=== PATIENT | male | born 1960 | race Caucasian/White ===

== ENCOUNTER 2017-07-31 09:19 | Emergency (ER) | payer SELFPAY, OTHER | END 2017-07-31 13:10 | disposition left against medical advice (07) | LOC: E/R 09:19 | DX: Z53.21 Procedure and treatment not carried out due to patient leaving prior to being seen by health care provider (principal) ==

== ENCOUNTER 2017-08-09 07:03 | Inpatient (IN) | payer OTHER ==
[2017-08-09] MEDS ORDERED: NACL 0.9% 3 ML SYG IV (12:00)
[2017-08-09] MEDS ORDERED: NITROGLYCERIN (SL) 0.4 MG TAB SL (12:00)
[2017-08-09] MEDS ORDERED: ACETAMINOPHEN 325 MG TAB PO (12:00)
[2017-08-09 12:34] LABS: CREATINE KINASE 53 IU/L (23-200)
[2017-08-09 12:47] LABS: CK INDEX 3.1
[2017-08-09 12:49] LABS: CK-MB 1.66 ng/ml (0.0-2.4); TROPONIN-I < 0.012 ng/ml (0.00-0.12)
[2017-08-09 13:05] LABS: HEMOGLOBIN A1C 9.6 % (0-5.9)
[2017-08-09 13:13] LABS: LDL CHOLESTEROL,CALCULATED 112 mg/dl
[2017-08-09 13:15] LABS: CHOLESTEROL 167 mg/dl (100-200); HDL CHOLESTEROL 33 mg/dl (28-71); MAGNESIUM 1.7 mg/dl (1.7-2.5); TRIGLYCERIDES 111 mg/dl (0-149)
[2017-08-09 13:15] LABS: PHOSPHORUS 3.6 mg/dl (2.5-4.9)
[2017-08-09] MEDS: ASPIRIN 81 MG TAB PO (13:19)
[2017-08-09] MEDS: DOCUSATE SODIUM 100 MG CAP PO ×2 (13:19→22:46)
[2017-08-09] MEDS: FAMOTIDINE 20 MG TAB PO ×2 (13:19→22:45)
[2017-08-09] MEDS: LISINOPRIL 20 MG TAB PO (13:20)
[2017-08-09] MEDS: HYDROCODONE/APAP (5/325) TAB PO ×2 (13:22→22:45)
[2017-08-09] MEDS ORDERED: GLUCOSE GEL 15 GRAM TUBE PO ×2 (13:30)
[2017-08-09] MEDS ORDERED: GLUCOSE GEL 15 GRAM TUBE BUCCAL (13:30)
[2017-08-09] MEDS ORDERED: DEXTROSE 50% 50 ML SYRINGE IV ×2 (13:30)
[2017-08-09] MEDS ORDERED: GLUCAGON 1 MG INJ IM (13:30)
[2017-08-09 14:37] LABS: ADD UMIC NO; UR ASCORBIC ACID NEGATIVE (NEGATIVE); UR BILIRUBIN (Dip) NEGATIVE (NEGATIVE); UR BLOOD (Dip) NEGATIVE (NEGATIVE); UR CLARITY CLEAR (CLEAR); UR COLOR YELLOW (YELLOW); UR GLUCOSE (Dip) 3+ mg/dL (NEGATIVE); UR KETONES (Dip) NEGATIVE (NEGATIVE); UR LEUKOCYTE ESTERASE (Dip) NEGATIVE Leu/ul (NEGATIVE); UR NITRITE (Dip) NEGATIVE (NEGATIVE); UR SPECIFIC GRAVITY (Dip) 1.017 (1.003-1.030); UR TOTAL PROTEIN (Dip) NEGATIVE (NEGATIVE); UR UROBILINOGEN (Dip) NEGATIVE (NEGATIVE)
[2017-08-09 14:56] LABS: CANNABINOIDS Negative (NEGATIVE); OPIATES Negative (NEGATIVE)
[2017-08-09 15:06] LABS: BARBITURATES Negative (NEGATIVE); BENZODIAZEPINES Negative (NEGATIVE); COCAINE Negative (NEGATIVE)
[2017-08-09 15:07] LABS: AMPHETAMINE/METHAMPHETAMINE POSITIVE (NEGATIVE)
[2017-08-09] MEDS: AMLODIPINE 10 MG TAB PO (15:25)
[2017-08-09] MEDS: NICOTINE (21 MG/24 HR) PATCH TRANSDERM (15:26)
[2017-08-09] MEDS: ENOXAPARIN 40 MG/0.4 ML SYG SC (15:29)
[2017-08-09] MEDS: REPAGLINIDE 1 MG TAB PO (16:50)
[2017-08-09] MEDS: morphine 2 MG INJ IV (16:51)
[2017-08-09] MEDS ORDERED: VANCOMYCIN IV PER PHARMACY XX (17:30)
[2017-08-09] MEDS: LEVOFLOXACIN 500 MG TAB GTB (17:39)
[2017-08-09] MEDS: INSULIN ASPART [NOVOLOG] 3 ML PEN SC ×2 (17:44→23:03)
[2017-08-09 18:23] LABS: CREATINE KINASE 50 IU/L (23-200)
[2017-08-09 18:24] LABS: BLOOD UREA NITROGEN 17 mg/dl (7-20)
[2017-08-09 18:24] LABS: CREATININE 0.81 mg/dl (0.61-1.24)
[2017-08-09 18:37] LABS: CK INDEX 3.2
[2017-08-09 18:38] LABS: CK-MB 1.58 ng/ml (0.0-2.4); TROPONIN-I < 0.012 ng/ml (0.00-0.12)
[2017-08-09] MEDS: ACCU-CHEK XX (19:35)
[2017-08-09] MEDS: TAMSULOSIN (SR) 0.4 MG CAP PO (22:45)
[2017-08-09] MEDS: VANCOMYCIN 2 GM in DEXTROSE 5% 500 ML IVPB (22:46)
[2017-08-09] MEDS: INSULIN GLARGINE [LANtus] 3 ML PEN SC (23:02)
[2017-08-10] MEDS: ACCU-CHEK XX ×4 (02:49→19:35)
[2017-08-10] MEDS: LEVOFLOXACIN 500 MG TAB GTB (06:10)
[2017-08-10 07:15] LABS: ADD MAN DIFF? NO
[2017-08-10 07:19] LABS: WHITE BLOOD COUNT 8.3 10^3/ul (4.8-10.8)
[2017-08-10 07:19] LABS: BASOPHILS % 0.5 % (0.0-2.0); EOSINOPHILS # 0.1 10^3/ul (0.0-0.5); EOSINOPHILS % 1.7 % (0.0-7.0); HEMATOCRIT 42.4 % (42.0-52.0); HEMOGLOBIN 14.9 g/dl (14.0-18.0); LYMPHOCYTES # 2.6 10^3/ul (0.8-2.9); LYMPHOCYTES % 30.7 % (15.0-51.0); MEAN CORPUSCULAR HEMOGLOBIN 29.9 pg (29.0-33.0); MEAN CORPUSCULAR HGB CONC 35.1 g/dl (32.0-37.0); MEAN PLATELET VOLUME 10.3 fl (7.4-10.4); MONOCYTE # 0.6 10^3/ul (0.3-0.9); MONOCYTES % 6.8 % (0.0-11.0); NEUTROPHILS % 59.9 % (39.0-77.0); PLATELET COUNT 286 10^3/UL (140-415); RED BLOOD COUNT 4.99 10^6/ul (4.70-6.10); RED CELL DISTRIBUTION WIDTH 14.3 % (11.5-14.5)
[2017-08-10 07:40] LABS: ALANINE AMINOTRANSFERASE 59 IU/L (13-69); ALBUMIN 3.8 g/dl (3.3-4.9); ALKALINE PHOSPHATASE 84 IU/L (42-121); ANION GAP 17 (8-16); ASPARTATE AMINO TRANSFERASE 37 IU/L (15-46); BILIRUBIN,INDIRECT 0.8 mg/dl (0-1.1); BILIRUBIN,TOTAL 0.8 mg/dl (0.2-1.3); BLOOD UREA NITROGEN 13 mg/dl (7-20); CALCIUM 8.7 mg/dl (8.4-10.2); CARBON DIOXIDE 26 mmol/L (21-31); CHLORIDE 102 mmol/L (97-110); CREATININE 0.87 mg/dl (0.61-1.24); GLUCOSE 218 mg/dl (70-220); POTASSIUM 3.7 mmol/L (3.5-5.1); SODIUM 141 mmol/L (135-144)
[2017-08-10 07:49] LABS: MAGNESIUM 1.8 mg/dl (1.7-2.5)
[2017-08-10] MEDS: NICOTINE (21 MG/24 HR) PATCH TRANSDERM (08:17)
[2017-08-10] MEDS: REPAGLINIDE 1 MG TAB PO ×3 (08:17→17:50)
[2017-08-10] MEDS: DOCUSATE SODIUM 100 MG CAP PO ×2 (08:18→21:00)
[2017-08-10] MEDS: FAMOTIDINE 20 MG TAB PO ×2 (08:18→21:00)
[2017-08-10] MEDS: ASPIRIN 81 MG TAB PO (08:19)
[2017-08-10] MEDS: LISINOPRIL 20 MG TAB PO (08:19)
[2017-08-10] MEDS: ENOXAPARIN 40 MG/0.4 ML SYG SC (08:20)
[2017-08-10] MEDS: INSULIN ASPART [NOVOLOG] 3 ML PEN SC ×6 (08:21→21:00)
[2017-08-10] MEDS: AMLODIPINE 10 MG TAB PO (08:24)
[2017-08-10] MEDS: VANCOMYCIN 1.5 GM in SOD CHLORIDE 0.9% 250 ML IVPB ×2 (09:32→22:52)
[2017-08-10 11:52] LABS: TROPONIN-I < 0.012 ng/ml (0.00-0.12)
[2017-08-10] MEDS: HYDROCODONE/APAP (5/325) TAB PO ×2 (15:36→22:53)
[2017-08-10] MEDS: INFLUENZA VIRUS VACCINE 0.5 ML SYG IM* (15:39)
[2017-08-10] MEDS: TAMSULOSIN (SR) 0.4 MG CAP PO (21:00)
[2017-08-10] MEDS: LORAZEPAM 0.5 MG TAB PO (22:53)
[2017-08-10] MEDS: INSULIN GLARGINE [LANtus] 3 ML PEN SC (23:00)
[2017-08-11] MEDS: ACCU-CHEK XX ×2 (02:00→19:35)
[2017-08-11] MEDS: LEVOFLOXACIN 500 MG TAB GTB (06:01)
[2017-08-11 06:34] LABS: ADD MAN DIFF? NO
[2017-08-11 06:38] LABS: BASOPHIL # 0.1 10^3/ul (0.0-0.1); BASOPHILS % 0.8 % (0.0-2.0); EOSINOPHILS # 0.2 10^3/ul (0.0-0.5); EOSINOPHILS % 2.1 % (0.0-7.0); HEMATOCRIT 42.5 % (42.0-52.0); HEMOGLOBIN 15.2 g/dl (14.0-18.0); LYMPHOCYTES # 2.6 10^3/ul (0.8-2.9); LYMPHOCYTES % 33.6 % (15.0-51.0); MEAN CORPUSCULAR HEMOGLOBIN 30.2 pg (29.0-33.0); MEAN CORPUSCULAR HGB CONC 35.8 g/dl (32.0-37.0); MEAN CORPUSCULAR VOLUME 84.3 fl (82.0-101.0); MEAN PLATELET VOLUME 10.5 fl (7.4-10.4); MONOCYTE # 0.6 10^3/ul (0.3-0.9); MONOCYTES % 8.1 % (0.0-11.0); NEUTROPHIL # 4.3 10^3/ul (1.6-7.5); NEUTROPHILS % 54.8 % (39.0-77.0); PLATELET COUNT 283 10^3/UL (140-415); RED BLOOD COUNT 5.04 10^6/ul (4.70-6.10); RED CELL DISTRIBUTION WIDTH 14.6 % (11.5-14.5)
[2017-08-11 06:38] LABS: WHITE BLOOD COUNT 7.8 10^3/ul (4.8-10.8)
[2017-08-11 07:00] LABS: ALANINE AMINOTRANSFERASE 55 IU/L (13-69); ALKALINE PHOSPHATASE 76 IU/L (42-121); ANION GAP 17 (8-16); ASPARTATE AMINO TRANSFERASE 37 IU/L (15-46); BILIRUBIN,INDIRECT 0.5 mg/dl (0-1.1); BILIRUBIN,TOTAL 0.5 mg/dl (0.2-1.3); BLOOD UREA NITROGEN 16 mg/dl (7-20); CALCIUM 9.1 mg/dl (8.4-10.2); CARBON DIOXIDE 27 mmol/L (21-31); CHLORIDE 105 mmol/L (97-110); GLUCOSE 162 mg/dl (70-220); POTASSIUM 3.7 mmol/L (3.5-5.1); SODIUM 145 mmol/L (135-144); TOTAL PROTEIN 7.3 g/dl (6.1-8.1)
[2017-08-11] MEDS: INSULIN ASPART [NOVOLOG] 3 ML PEN SC ×7 (07:35→21:00)
[2017-08-11] MEDS: DOCUSATE SODIUM 100 MG CAP PO ×2 (08:18→21:12)
[2017-08-11] MEDS: NICOTINE (21 MG/24 HR) PATCH TRANSDERM (08:18)
[2017-08-11] MEDS: LISINOPRIL 20 MG TAB PO (08:18)
[2017-08-11] MEDS: ASPIRIN 81 MG TAB PO (08:18)
[2017-08-11] MEDS: FAMOTIDINE 20 MG TAB PO ×2 (08:18→21:12)
[2017-08-11] MEDS: REPAGLINIDE 1 MG TAB PO ×3 (08:19→17:51)
[2017-08-11] MEDS: HYDROCODONE/APAP (5/325) TAB PO (08:19)
[2017-08-11] MEDS: ENOXAPARIN 40 MG/0.4 ML SYG SC (08:22)
[2017-08-11 09:40] LABS: VANCOMYCIN,TROUGH 9.4 ug/ml (10.0-20.0)
[2017-08-11] MEDS: VANCOMYCIN 1.5 GM in SOD CHLORIDE 0.9% 250 ML IVPB (10:03)
[2017-08-11] MEDS: AMLODIPINE 10 MG TAB PO (10:03)
[2017-08-11] MEDS: INSULIN GLARGINE [LANtus] 3 ML PEN SC (21:19)
[2017-08-11] MEDS: TAMSULOSIN (SR) 0.4 MG CAP PO (21:21)
[2017-08-11] MEDS: VANCOMYCIN 1.75 GM in D5W 500 ML IVPB (22:02)
[2017-08-12] MEDS: HYDROCODONE/APAP (5/325) TAB PO ×3 (01:07→20:41)
[2017-08-12] MEDS: ZOLPIDEM 5 MG TAB PO ×2 (01:07→21:49)
[2017-08-12] MEDS: ACCU-CHEK XX ×4 (01:31→19:35)
[2017-08-12 05:23] LABS: ADD MAN DIFF? NO
[2017-08-12 05:31] LABS: WHITE BLOOD COUNT 8.7 10^3/ul (4.8-10.8)
[2017-08-12 05:31] LABS: BASOPHIL # 0.1 10^3/ul (0.0-0.1); BASOPHILS % 0.6 % (0.0-2.0); EOSINOPHILS # 0.2 10^3/ul (0.0-0.5); EOSINOPHILS % 1.8 % (0.0-7.0); HEMOGLOBIN 15.3 g/dl (14.0-18.0); LYMPHOCYTES # 2.5 10^3/ul (0.8-2.9); LYMPHOCYTES % 28.8 % (15.0-51.0); MEAN CORPUSCULAR HEMOGLOBIN 29.9 pg (29.0-33.0); MEAN CORPUSCULAR HGB CONC 35.6 g/dl (32.0-37.0); MONOCYTE # 0.6 10^3/ul (0.3-0.9); MONOCYTES % 7.3 % (0.0-11.0); NEUTROPHIL # 5.3 10^3/ul (1.6-7.5); NEUTROPHILS % 61.2 % (39.0-77.0); PLATELET COUNT 289 10^3/UL (140-415); RED BLOOD COUNT 5.12 10^6/ul (4.70-6.10); RED CELL DISTRIBUTION WIDTH 14.2 % (11.5-14.5)
[2017-08-12 05:54] LABS: ANION GAP 15 (8-16); BLOOD UREA NITROGEN 16 mg/dl (7-20); CALCIUM 9.1 mg/dl (8.4-10.2); CARBON DIOXIDE 27 mmol/L (21-31); CHLORIDE 106 mmol/L (97-110); CREATININE 0.87 mg/dl (0.61-1.24); GLUCOSE 214 mg/dl (70-220); POTASSIUM 3.8 mmol/L (3.5-5.1); SODIUM 144 mmol/L (135-144)
[2017-08-12] MEDS: LEVOFLOXACIN 500 MG TAB GTB (06:08)
[2017-08-12] MEDS: INSULIN ASPART [NOVOLOG] 3 ML PEN SC ×7 (07:36→20:37)
[2017-08-12] MEDS: DOCUSATE SODIUM 100 MG CAP PO ×2 (08:12→20:41)
[2017-08-12] MEDS: FAMOTIDINE 20 MG TAB PO ×2 (08:13→20:41)
[2017-08-12] MEDS: REPAGLINIDE 1 MG TAB PO ×3 (08:13→17:15)
[2017-08-12] MEDS: ASPIRIN 81 MG TAB PO (08:13)
[2017-08-12] MEDS: LISINOPRIL 20 MG TAB PO (08:13)
[2017-08-12] MEDS: NICOTINE (21 MG/24 HR) PATCH TRANSDERM (08:14)
[2017-08-12] MEDS: ENOXAPARIN 40 MG/0.4 ML SYG SC (08:16)
[2017-08-12] MEDS: AMLODIPINE 10 MG TAB PO (09:25)
[2017-08-12] MEDS: VANCOMYCIN 1.75 GM in D5W 500 ML IVPB ×2 (10:35→21:42)
[2017-08-12] MEDS ORDERED: LIDOCAINE 1%/EPI 30 ML INJ INJ (18:32)
[2017-08-12] MEDS ORDERED: SILVER NITRATE SWAB TOP (19:00)
[2017-08-12] MEDS: INSULIN GLARGINE [LANtus] 3 ML PEN SC (20:37)
[2017-08-12] MEDS: TAMSULOSIN (SR) 0.4 MG CAP PO (20:41)
[2017-08-13] MEDS: ACCU-CHEK XX ×4 (02:00→20:05)
[2017-08-13] MEDS: HYDROCODONE/APAP (5/325) TAB PO ×3 (04:49→21:21)
[2017-08-13 05:48] LABS: ADD MAN DIFF? NO
[2017-08-13 05:56] LABS: WHITE BLOOD COUNT 7.6 10^3/ul (4.8-10.8)
[2017-08-13 05:56] LABS: BASOPHIL # 0.1 10^3/ul (0.0-0.1); BASOPHILS % 0.8 % (0.0-2.0); EOSINOPHILS # 0.2 10^3/ul (0.0-0.5); EOSINOPHILS % 2.2 % (0.0-7.0); HEMATOCRIT 42.7 % (42.0-52.0); HEMOGLOBIN 15.1 g/dl (14.0-18.0); LYMPHOCYTES # 2.6 10^3/ul (0.8-2.9); LYMPHOCYTES % 33.5 % (15.0-51.0); MEAN CORPUSCULAR HEMOGLOBIN 29.6 pg (29.0-33.0); MEAN CORPUSCULAR HGB CONC 35.4 g/dl (32.0-37.0); MEAN CORPUSCULAR VOLUME 83.7 fl (82.0-101.0); MEAN PLATELET VOLUME 9.9 fl (7.4-10.4); MONOCYTE # 0.6 10^3/ul (0.3-0.9); MONOCYTES % 7.2 % (0.0-11.0); NEUTROPHIL # 4.3 10^3/ul (1.6-7.5); NEUTROPHILS % 55.6 % (39.0-77.0); PLATELET COUNT 282 10^3/UL (140-415); RED CELL DISTRIBUTION WIDTH 14.1 % (11.5-14.5)
[2017-08-13] MEDS: LEVOFLOXACIN 500 MG TAB GTB (06:16)
[2017-08-13 06:25] LABS: ANION GAP 17 (8-16); BLOOD UREA NITROGEN 15 mg/dl (7-20); CALCIUM 9.2 mg/dl (8.4-10.2); CARBON DIOXIDE 27 mmol/L (21-31); CHLORIDE 104 mmol/L (97-110); CREATININE 0.87 mg/dl (0.61-1.24); GLUCOSE 156 mg/dl (70-220); POTASSIUM 3.7 mmol/L (3.5-5.1); SODIUM 144 mmol/L (135-144)
[2017-08-13 06:30] LABS: MAGNESIUM 1.8 mg/dl (1.7-2.5)
[2017-08-13 06:30] LABS: PHOSPHORUS 3.4 mg/dl (2.5-4.9)
[2017-08-13] MEDS: INSULIN ASPART [NOVOLOG] 3 ML PEN SC ×7 (08:15→21:11)
[2017-08-13] MEDS: REPAGLINIDE 2 MG TAB PO ×3 (08:15→17:33)
[2017-08-13] MEDS: LISINOPRIL 20 MG TAB PO (08:41)
[2017-08-13] MEDS: FAMOTIDINE 20 MG TAB PO ×2 (08:41→21:09)
[2017-08-13] MEDS: ASPIRIN 81 MG TAB PO (08:41)
[2017-08-13] MEDS: AMLODIPINE 10 MG TAB PO (08:41)
[2017-08-13] MEDS: DOCUSATE SODIUM 100 MG CAP PO ×2 (08:41→21:09)
[2017-08-13] MEDS: NICOTINE (21 MG/24 HR) PATCH TRANSDERM (08:42)
[2017-08-13] MEDS: ENOXAPARIN 40 MG/0.4 ML SYG SC (08:43)
[2017-08-13] MEDS: VANCOMYCIN 1.75 GM in D5W 500 ML IVPB ×2 (10:17→23:09)
[2017-08-13] MEDS: ONDANSETRON 4 MG INJ IV (14:48)
[2017-08-13] MEDS: TAMSULOSIN (SR) 0.4 MG CAP PO (21:09)
[2017-08-13] MEDS: INSULIN GLARGINE [LANtus] 3 ML PEN SC (21:10)
[2017-08-13] MEDS: ZOLPIDEM 5 MG TAB PO (22:24)
[2017-08-13 22:45] LABS: VANCOMYCIN,TROUGH 15.9 ug/ml (10.0-20.0)
[2017-08-14] MEDS: ACCU-CHEK XX ×4 (02:00→20:05)
[2017-08-14] MEDS: LEVOFLOXACIN 500 MG TAB GTB (05:46)
[2017-08-14] MEDS: HYDROCODONE/APAP (5/325) TAB PO ×3 (05:47→17:49)
[2017-08-14 05:53] LABS: ADD MAN DIFF? NO
[2017-08-14 05:57] LABS: WHITE BLOOD COUNT 9.1 10^3/ul (4.8-10.8)
[2017-08-14 05:57] LABS: BASOPHIL # 0.1 10^3/ul (0.0-0.1); BASOPHILS % 0.8 % (0.0-2.0); EOSINOPHILS # 0.2 10^3/ul (0.0-0.5); EOSINOPHILS % 2.3 % (0.0-7.0); LYMPHOCYTES # 2.6 10^3/ul (0.8-2.9); LYMPHOCYTES % 27.9 % (15.0-51.0); MEAN CORPUSCULAR HEMOGLOBIN 29.7 pg (29.0-33.0); MEAN CORPUSCULAR HGB CONC 34.8 g/dl (32.0-37.0); MEAN CORPUSCULAR VOLUME 85.5 fl (82.0-101.0); MEAN PLATELET VOLUME 10.2 fl (7.4-10.4); MONOCYTE # 0.6 10^3/ul (0.3-0.9); MONOCYTES % 6.8 % (0.0-11.0); NEUTROPHIL # 5.6 10^3/ul (1.6-7.5); NEUTROPHILS % 61.7 % (39.0-77.0); PLATELET COUNT 287 10^3/UL (140-415); RED BLOOD COUNT 5.38 10^6/ul (4.70-6.10); RED CELL DISTRIBUTION WIDTH 14.3 % (11.5-14.5)
[2017-08-14 06:20] LABS: ANION GAP 14 (8-16); BLOOD UREA NITROGEN 16 mg/dl (7-20); CALCIUM 9.3 mg/dl (8.4-10.2); CARBON DIOXIDE 30 mmol/L (21-31); CHLORIDE 106 mmol/L (97-110); CREATININE 1.04 mg/dl (0.61-1.24); GLUCOSE 113 mg/dl (70-220); POTASSIUM 4.4 mmol/L (3.5-5.1); SODIUM 146 mmol/L (135-144)
[2017-08-14] MEDS: INSULIN ASPART [NOVOLOG] 3 ML PEN SC ×7 (08:25→21:14)
[2017-08-14] MEDS: NICOTINE (21 MG/24 HR) PATCH TRANSDERM (08:27)
[2017-08-14] MEDS: ENOXAPARIN 40 MG/0.4 ML SYG SC (08:27)
[2017-08-14] MEDS: LISINOPRIL 20 MG TAB PO (08:28)
[2017-08-14] MEDS: FAMOTIDINE 20 MG TAB PO ×2 (08:28→21:07)
[2017-08-14] MEDS: AMLODIPINE 10 MG TAB PO (08:28)
[2017-08-14] MEDS: ASPIRIN 81 MG TAB PO (08:28)
[2017-08-14] MEDS: REPAGLINIDE 2 MG TAB PO ×3 (08:28→17:12)
[2017-08-14] MEDS: DOCUSATE SODIUM 100 MG CAP PO ×2 (08:30→21:07)
[2017-08-14] MEDS: VANCOMYCIN 1.75 GM in D5W 500 ML IVPB (10:09)
[2017-08-14] MEDS: GUAIFENESIN/DM 5ML CUP PO ×2 (13:18→21:24)
[2017-08-14] MEDS ORDERED: LIDOCAINE 1% (MDV) 20 ML INJ (17:41)
[2017-08-14] MEDS: TAMSULOSIN (SR) 0.4 MG CAP PO (21:07)
[2017-08-14] MEDS: INSULIN GLARGINE [LANtus] 3 ML PEN SC (21:11)
[2017-08-14] MEDS: VANCOMYCIN 1.5 GM in SOD CHLORIDE 0.9% 250 ML IVPB (21:12)
[2017-08-15] MEDS: HYDROCODONE/APAP (5/325) TAB PO (01:18)
[2017-08-15] MEDS: ACCU-CHEK XX ×4 (02:00→20:05)
[2017-08-15] MEDS ORDERED: morphine 2 MG INJ (02:48)
[2017-08-15] MEDS: morphine 2 MG INJ IV ×3 (02:59→20:10)
[2017-08-15] MEDS: LEVOFLOXACIN 500 MG TAB GTB (06:12)
[2017-08-15] MEDS: HYDROCODONE/APAP (10/325) TAB PO ×2 (06:12→12:03)
[2017-08-15 06:49] LABS: ADD MAN DIFF? NO
[2017-08-15 06:54] LABS: BASOPHIL # 0.1 10^3/ul (0.0-0.1); BASOPHILS % 0.8 % (0.0-2.0); EOSINOPHILS # 0.2 10^3/ul (0.0-0.5); EOSINOPHILS % 2.1 % (0.0-7.0); HEMATOCRIT 43.1 % (42.0-52.0); HEMOGLOBIN 15.1 g/dl (14.0-18.0); LYMPHOCYTES # 2.6 10^3/ul (0.8-2.9); LYMPHOCYTES % 28.7 % (15.0-51.0); MEAN CORPUSCULAR VOLUME 85.5 fl (82.0-101.0); MEAN PLATELET VOLUME 10.3 fl (7.4-10.4); MONOCYTE # 0.7 10^3/ul (0.3-0.9); MONOCYTES % 7.3 % (0.0-11.0); NEUTROPHIL # 5.5 10^3/ul (1.6-7.5); NEUTROPHILS % 60.8 % (39.0-77.0); PLATELET COUNT 280 10^3/UL (140-415); RED BLOOD COUNT 5.04 10^6/ul (4.70-6.10); RED CELL DISTRIBUTION WIDTH 14.3 % (11.5-14.5)
[2017-08-15 07:11] LABS: PHOSPHORUS 3.7 mg/dl (2.5-4.9)
[2017-08-15 07:15] LABS: ANION GAP 16 (8-16); BLOOD UREA NITROGEN 18 mg/dl (7-20); CARBON DIOXIDE 26 mmol/L (21-31); CHLORIDE 107 mmol/L (97-110); CREATININE 0.93 mg/dl (0.61-1.24); GLUCOSE 95 mg/dl (70-220); POTASSIUM 3.9 mmol/L (3.5-5.1); SODIUM 145 mmol/L (135-144)
[2017-08-15] MEDS: INSULIN ASPART [NOVOLOG] 3 ML PEN SC ×7 (08:00→21:00)
[2017-08-15] MEDS: ENOXAPARIN 40 MG/0.4 ML SYG SC (08:41)
[2017-08-15] MEDS: ASPIRIN 81 MG TAB PO (08:43)
[2017-08-15] MEDS: FAMOTIDINE 20 MG TAB PO ×2 (08:43→21:50)
[2017-08-15] MEDS: REPAGLINIDE 2 MG TAB PO ×3 (08:43→17:27)
[2017-08-15] MEDS: LISINOPRIL 20 MG TAB PO (08:43)
[2017-08-15] MEDS: AMLODIPINE 10 MG TAB PO (08:43)
[2017-08-15] MEDS: DOCUSATE SODIUM 100 MG CAP PO ×2 (08:43→21:50)
[2017-08-15] MEDS: NICOTINE (21 MG/24 HR) PATCH TRANSDERM (08:44)
[2017-08-15] MEDS: VANCOMYCIN 1.5 GM in SOD CHLORIDE 0.9% 250 ML IVPB ×2 (10:27→21:51)
[2017-08-15] MEDS: GUAIFENESIN/DM 5ML CUP PO ×2 (13:56→21:59)
[2017-08-15] MEDS: TAMSULOSIN (SR) 0.4 MG CAP PO (21:50)
[2017-08-15] MEDS: INSULIN GLARGINE [LANtus] 3 ML PEN SC (21:53)
[2017-08-15] MEDS: LORAZEPAM 0.5 MG TAB PO (21:59)
[2017-08-16] MEDS: ACCU-CHEK XX ×4 (02:00→20:58)
[2017-08-16] MEDS: LEVOFLOXACIN 500 MG TAB GTB (05:24)
[2017-08-16] MEDS: morphine 2 MG INJ IV ×3 (05:24→22:02)
[2017-08-16 05:47] LABS: ADD MAN DIFF? NO
[2017-08-16 05:50] LABS: WHITE BLOOD COUNT 8.7 10^3/ul (4.8-10.8)
[2017-08-16 05:50] LABS: BASOPHIL # 0.1 10^3/ul (0.0-0.1); EOSINOPHILS # 0.2 10^3/ul (0.0-0.5); EOSINOPHILS % 2.3 % (0.0-7.0); HEMATOCRIT 44.7 % (42.0-52.0); HEMOGLOBIN 15.4 g/dl (14.0-18.0); LYMPHOCYTES # 2.5 10^3/ul (0.8-2.9); LYMPHOCYTES % 29.3 % (15.0-51.0); MEAN CORPUSCULAR HEMOGLOBIN 29.7 pg (29.0-33.0); MEAN CORPUSCULAR HGB CONC 34.5 g/dl (32.0-37.0); MEAN CORPUSCULAR VOLUME 86.1 fl (82.0-101.0); MEAN PLATELET VOLUME 10.3 fl (7.4-10.4); MONOCYTE # 0.7 10^3/ul (0.3-0.9); MONOCYTES % 7.7 % (0.0-11.0); NEUTROPHIL # 5.1 10^3/ul (1.6-7.5); NEUTROPHILS % 59.2 % (39.0-77.0); PLATELET COUNT 292 10^3/UL (140-415); RED BLOOD COUNT 5.19 10^6/ul (4.70-6.10); RED CELL DISTRIBUTION WIDTH 14.2 % (11.5-14.5)
[2017-08-16 06:36] LABS: PHOSPHORUS 3.7 mg/dl (2.5-4.9)
[2017-08-16 06:36] LABS: MAGNESIUM 1.9 mg/dl (1.7-2.5)
[2017-08-16 06:56] LABS: ANION GAP 17 (8-16); BLOOD UREA NITROGEN 18 mg/dl (7-20); CALCIUM 9.6 mg/dl (8.4-10.2); CARBON DIOXIDE 30 mmol/L (21-31); CHLORIDE 103 mmol/L (97-110); CREATININE 0.99 mg/dl (0.61-1.24); GLUCOSE 158 mg/dl (70-220); POTASSIUM 4.6 mmol/L (3.5-5.1); SODIUM 145 mmol/L (135-144)
[2017-08-16] MEDS: INSULIN ASPART [NOVOLOG] 3 ML PEN SC ×7 (08:00→20:58)
[2017-08-16] MEDS: NICOTINE (21 MG/24 HR) PATCH TRANSDERM (08:33)
[2017-08-16] MEDS: REPAGLINIDE 2 MG TAB PO ×2 (08:34→12:30)
[2017-08-16] MEDS: AMLODIPINE 10 MG TAB PO (08:34)
[2017-08-16] MEDS: DOCUSATE SODIUM 100 MG CAP PO ×2 (08:34→20:58)
[2017-08-16] MEDS: ASPIRIN 81 MG TAB PO (08:34)
[2017-08-16] MEDS: FAMOTIDINE 20 MG TAB PO ×2 (08:34→20:58)
[2017-08-16] MEDS: LISINOPRIL 20 MG TAB PO (08:34)
[2017-08-16] MEDS: ENOXAPARIN 40 MG/0.4 ML SYG SC (08:36)
[2017-08-16 12:02] LABS: VANCOMYCIN,TROUGH 11.2 ug/ml (10.0-20.0)
[2017-08-16] MEDS: VANCOMYCIN 1.5 GM in SOD CHLORIDE 0.9% 250 ML IVPB ×2 (12:30→21:01)
[2017-08-16] MEDS: TAMSULOSIN (SR) 0.4 MG CAP PO (20:58)
[2017-08-16] MEDS: INSULIN GLARGINE [LANtus] 3 ML PEN SC (20:58)
[2017-08-16] MEDS: GUAIFENESIN/DM 5ML CUP PO (23:23)
[2017-08-16] MEDS: LORAZEPAM 0.5 MG TAB PO (23:59)
[2017-08-17] MEDS: ACCU-CHEK XX ×2 (02:00→10:30)
[2017-08-17] MEDS: LEVOFLOXACIN 500 MG TAB GTB (05:28)
[2017-08-17] MEDS: HYDROCODONE/APAP (10/325) TAB PO (05:28)
[2017-08-17] MEDS: REPAGLINIDE 2 MG TAB PO ×3 (07:35→12:10)
[2017-08-17] MEDS: ENOXAPARIN 40 MG/0.4 ML SYG SC (08:28)
[2017-08-17] MEDS: INSULIN ASPART [NOVOLOG] 3 ML PEN SC ×4 (08:29→12:13)
[2017-08-17] MEDS: ASPIRIN 81 MG TAB PO (08:30)
[2017-08-17] MEDS: FAMOTIDINE 20 MG TAB PO (08:30)
[2017-08-17] MEDS: NICOTINE (21 MG/24 HR) PATCH TRANSDERM (08:30)
[2017-08-17] MEDS: AMLODIPINE 10 MG TAB PO (08:31)
[2017-08-17] MEDS: DOCUSATE SODIUM 100 MG CAP PO (08:31)
[2017-08-17] MEDS: LISINOPRIL 20 MG TAB PO (08:40)
[2017-08-17] MEDS: VANCOMYCIN 1.5 GM in SOD CHLORIDE 0.9% 250 ML IVPB (08:45)
== END 2017-08-17 14:40 | disposition home health service (06) | DRG 313 ==
LOC: MS3 07:03 → PP2 08-12 20:10
PROC: 0H9 Skin and Breast, Drainage (ICD-10-PCS; principal; 2017-08-09)
DX: R07.89 Other chest pain (principal); R65.10 Systemic inflammatory response syndrome (SIRS) of non-infectious origin without acute organ dysfunction; L03.116 Cellulitis of left lower limb; L97.929 Non-pressure chronic ulcer of unspecified part of left lower leg with unspecified severity; E11.622 Type 2 diabetes mellitus with other skin ulcer; E66.01 Morbid (severe) obesity due to excess calories; L73.9 Follicular disorder, unspecified; L02.02 Furuncle of face; H60.01 Abscess of right external ear; I10 Essential (primary) hypertension; F17.200 Nicotine dependence, unspecified, uncomplicated; R60.0 Localized edema; N40.0 Benign prostatic hyperplasia without lower urinary tract symptoms; B95.8 Unspecified staphylococcus as the cause of diseases classified elsewhere; Z68.34 Body mass index [BMI] 34.0-34.9, adult; Z86.59 Personal history of other mental and behavioral disorders
CPT/HCPCS: 70200; 71045; 73718; 80048; 80061; 80076; 80202; 80307; 81003; 82550; 82553; 82565; 82962; 83036; 83735; 84100; 84484; 84520; 85025; 87040; 87070; 87081; 90686; 93306

== ENCOUNTER 2017-12-17 05:47 | Day surgery (SDC) | payer OTHER ==
[2017-12-16 14:10] LABS: ADD MAN DIFF? NO
[2017-12-16 14:17] LABS: WHITE BLOOD COUNT 8.9 10^3/ul (4.8-10.8)
[2017-12-16 14:17] LABS: BASOPHIL # 0.1 10^3/ul (0.0-0.1); BASOPHILS % 0.7 % (0.0-2.0); EOSINOPHILS # 0.2 10^3/ul (0.0-0.5); HEMATOCRIT 44.6 % (42.0-52.0); HEMOGLOBIN 15.3 g/dl (14.0-18.0); LYMPHOCYTES # 2.8 10^3/ul (0.8-2.9); LYMPHOCYTES % 31.2 % (15.0-51.0); MEAN CORPUSCULAR HEMOGLOBIN 30.4 pg (29.0-33.0); MEAN CORPUSCULAR HGB CONC 34.3 g/dl (32.0-37.0); MEAN CORPUSCULAR VOLUME 88.5 fl (82.0-101.0); MEAN PLATELET VOLUME 9.5 fl (7.4-10.4); MONOCYTE # 0.7 10^3/ul (0.3-0.9); MONOCYTES % 7.6 % (0.0-11.0); NEUTROPHIL # 5.2 10^3/ul (1.6-7.5); NEUTROPHILS % 58.2 % (39.0-77.0); PLATELET COUNT 338 10^3/UL (140-415); RED BLOOD COUNT 5.04 10^6/ul (4.70-6.10); RED CELL DISTRIBUTION WIDTH 14.7 % (11.5-14.5)
[2017-12-16 14:29] LABS: ALANINE AMINOTRANSFERASE 37 IU/L (13-69); ALBUMIN 4.7 g/dl (3.3-4.9); ALKALINE PHOSPHATASE 58 IU/L (42-121); ANION GAP 17 (8-16); ASPARTATE AMINO TRANSFERASE 35 IU/L (15-46); BILIRUBIN,INDIRECT 0.8 mg/dl (0-1.1); BILIRUBIN,TOTAL 0.8 mg/dl (0.2-1.3); BLOOD UREA NITROGEN 31 mg/dl (7-20); CARBON DIOXIDE 27 mmol/L (21-31); CHLORIDE 106 mmol/L (97-110); CREATININE 1.32 mg/dl (0.61-1.24); GLUCOSE 143 mg/dl (70-220); POTASSIUM 5.1 mmol/L (3.5-5.1); SODIUM 145 mmol/L (135-144); TOTAL PROTEIN 8.3 g/dl (6.1-8.1)
[2017-12-16 14:33] LABS: INR 0.92; PROTIME 12.4 Sec (11.9-14.9)
[2017-12-16 14:34] LABS: PARTIAL THROMBOPLASTIN TIME 29.9 Sec (25.0-35.0)
[2017-12-17] MEDS ORDERED: LACTATED RINGER'S 1,000 ML IV* (06:00)
[2017-12-17] MEDS ORDERED: CEFAZOLIN 2 GM/50 ML (PMX) 50 ML IVPB (06:00)
[2017-12-17] MEDS ORDERED: PROPOFOL 40 ML (07:00)
[2017-12-17] MEDS ORDERED: MIDAZOLAM 1 MG/ML 2 ML INJ ×2 (07:01→07:36)
[2017-12-17] MEDS ORDERED: FENTAnyl 50 MCG/ML VIAL ×2 (07:01→07:36)
[2017-12-17] MEDS ORDERED: CEFAZOLIN 1 GM INJ (07:05)
[2017-12-17] MEDS: BUPIVACAINE 0.25% (MPF) 30 ML INJ (07:56)
[2017-12-17] MEDS: LIDOCAINE 1%/EPI 30 ML INJ (07:56)
[2017-12-17] MEDS: GENTAMICIN 80 MG INJ (08:07)
[2017-12-17] MEDS: POLYMYXIN/BACITRACIN 1L IRRIG (08:08)
[2017-12-17] MEDS: MUPIROCIN 2% 15 GM CR (08:09)
[2017-12-17] MEDS ORDERED: ONDANSETRON 4 MG INJ (08:45)
[2017-12-17] MEDS ORDERED: DEXAMETHASONE 4 MG/ML 1 ML INJ (08:45)
[2017-12-17] MEDS ORDERED: METOCLOPRAMIDE 10 MG INJ (08:45)
[2017-12-17] MEDS ORDERED: PROPOFOL 20 ML (09:09)
[2017-12-17] MEDS ORDERED: ONDANSETRON 4 MG INJ IV (09:30)
[2017-12-17] MEDS ORDERED: FENTAnyl 50 MCG/ML VIAL IV ×3 (09:30)
[2017-12-17] MEDS ORDERED: DIPHENHYDRAMINE 50 MG INJ IV (09:30)
[2017-12-17] MEDS ORDERED: HYDROmorphONE 1 MG/5 ML IV SYRINGE IV ×2 (09:30)
[2017-12-17] MEDS ORDERED: LABETALOL HCL 20MG INJ IV (09:30)
[2017-12-17] MEDS ORDERED: hydrALAzine 20 MG INJ IV (09:30)
[2017-12-17] MEDS ORDERED: METOCLOPRAMIDE 10 MG INJ IV (09:30)
[2017-12-17] MEDS ORDERED: OXYCODONE/ACETAMINOPHEN (5/325) TAB PO (09:30)
[2017-12-17] MEDS ORDERED: MEPERIDINE 25 MG INJ IV (09:30)
[2017-12-17] MEDS: EPHEDrine SULFATE 50 MG/5 ML SYG IV (09:31)
[2017-12-17] MEDS: OXYCODONE/ACETAMINOPHEN (5/325) TAB PO (10:20)
== END 2017-12-17 12:03 | disposition home or self-care (01) ==
LOC: SDS 05:47
DX: D23.39 Other benign neoplasm of skin of other parts of face (principal); D23.21 Other benign neoplasm of skin of right ear and external auricular canal; E11.9 Type 2 diabetes mellitus without complications; I10 Essential (primary) hypertension; Z86.73 Personal history of transient ischemic attack (TIA), and cerebral infarction without residual deficits
CPT/HCPCS: 14040; 80053; 82962; 85025; 85610; 85730; 88307; 88331

== ENCOUNTER 2018-05-22 13:09 | Inpatient (IN) | payer OTHER ==
[2018-05-22] MEDS: ALBUTEROL 0.5% (NEB) 2.5 MG/0.5 ML AMP INH ×2 (13:28→15:18)
[2018-05-22 13:32] LABS: ADD MAN DIFF? NO
[2018-05-22 13:37] LABS: BASOPHIL # 0.1 10^3/ul (0.0-0.1); BASOPHILS % 0.7 % (0.0-2.0); EOSINOPHILS # 0.2 10^3/ul (0.0-0.5); EOSINOPHILS % 2.1 % (0.0-7.0); HEMATOCRIT 45.2 % (42.0-52.0); HEMOGLOBIN 15.9 g/dl (14.0-18.0); LYMPHOCYTES # 2.8 10^3/ul (0.8-2.9); LYMPHOCYTES % 28.4 % (15.0-51.0); MEAN CORPUSCULAR HEMOGLOBIN 30.6 pg (29.0-33.0); MEAN CORPUSCULAR HGB CONC 35.2 g/dl (32.0-37.0); MEAN CORPUSCULAR VOLUME 87.1 fl (82.0-101.0); MONOCYTE # 0.6 10^3/ul (0.3-0.9); MONOCYTES % 6.1 % (0.0-11.0); NEUTROPHILS % 61.8 % (39.0-77.0); PLATELET COUNT 349 10^3/UL (140-415); RED BLOOD COUNT 5.19 10^6/ul (4.70-6.10); RED CELL DISTRIBUTION WIDTH 14.7 % (11.5-14.5)
[2018-05-22 13:37] LABS: WHITE BLOOD COUNT 9.7 10^3/ul (4.8-10.8)
[2018-05-22] MEDS: CEFTRIAXONE 1 GM/50 ML (PMX) 50 ML IVPB (13:39)
[2018-05-22] MEDS: METHYLPREDNISOLONE 125 MG INJ IV ×2 (13:39→15:23)
[2018-05-22 13:45] LABS: AADO2 Arterial 533.4 mmHg (7.0-24.0); Allen Test ACCEPTAB; Arterial Base Excess 4.2 mmol/L (-3.0-3); Arterial Blood Gas Oxygen Sat 98.5 mmHG (95.0-98.0); Arterial COHb 2.9 % (0.0-3.0); Arterial Fraction of Oxyhgb 95.5 % (93.0-99.0); Arterial HCO3 28.5 mmol/L (22.0-26.0); Arterial MetHb 0.1 % (0.0-1.5); Arterial pCO2 41.3 mmhg (35-45); Blood Gas IEPAP 15/5; Blood Gas PS 10; MODE MASK - BIPAP; Site Right Radial
[2018-05-22 13:57] LABS: ALANINE AMINOTRANSFERASE 69 IU/L (13-69); ALBUMIN 4.5 g/dl (3.3-4.9); ALBUMIN/GLOBULIN RATIO 0.97; ALKALINE PHOSPHATASE 93 IU/L (42-121); ANION GAP 9 (5-13); ASPARTATE AMINO TRANSFERASE 55 IU/L (15-46); BILIRUBIN,INDIRECT 0.6 mg/dl (0-1.1); BILIRUBIN,TOTAL 0.6 mg/dl (0.2-1.3); BLOOD UREA NITROGEN 20 mg/dl (7-20); CALCIUM 9.5 mg/dl (8.4-10.2); CARBON DIOXIDE 30 mmol/L (21-31); CHLORIDE 100 mmol/L (97-110); CREATININE 0.81 mg/dl (0.61-1.24); Estimated GFR > 60 mL/min (>60); GLUCOSE 225 mg/dl (70-220); POTASSIUM 3.9 mmol/L (3.5-5.1); SODIUM 139 mmol/L (135-144); TOTAL PROTEIN 9.1 g/dl (6.1-8.1)
[2018-05-22 14:09] LABS: B-TYPE NATRIURETIC PEPTIDE 20 PG/ML (0-125); TROPONIN-I < 0.012 ng/ml (0.000-0.120)
[2018-05-22] MEDS: AZITHROMYCIN 500MG/NS (PMX) 250 ML IV (14:42)
[2018-05-22] MEDS ORDERED: SOD CHLORIDE 0.9% 1,000 ML IV (16:42)
[2018-05-22] MEDS ORDERED: ACETAMINOPHEN 325 MG TAB PO (17:00)
[2018-05-22] MEDS ORDERED: ONDANSETRON 4 MG INJ IV (17:00)
[2018-05-22] MEDS ORDERED: GLUCOSE GEL 15 GRAM TUBE BUCCAL (17:30)
[2018-05-22] MEDS ORDERED: GLUCAGON 1 MG INJ IM (17:30)
[2018-05-22] MEDS ORDERED: GLUCOSE GEL 15 GRAM TUBE PO ×2 (17:30)
[2018-05-22] MEDS ORDERED: DEXTROSE 50% 50 ML SYRINGE IV ×2 (17:30)
[2018-05-22] MEDS: FUROSEMIDE 40 MG INJ IV (17:43)
[2018-05-22] MEDS: SOD CHLORIDE 0.9% 100 ML (18:08)
[2018-05-22] MEDS: IOHEXOL 100 ML (18:08)
[2018-05-22] MEDS: ALBUTEROL/IPRATROPIUM (NEB) 3 ML AMP HHN (19:30)
[2018-05-22] MEDS ORDERED: INSULIN GLARGINE [LANTus] (100 UNITS/ML) SYG SC ×2 (20:00→21:00)
[2018-05-22] MEDS: AMLODIPINE 10 MG TAB PO (21:07)
[2018-05-22] MEDS: HYDROCHLOROTHIAZIDE 25 MG TAB PO (21:08)
[2018-05-22] MEDS: INSULIN ASPART [NOVOLOG] 3 ML PEN SC ×2 (21:17→21:51)
[2018-05-22] MEDS: LORAZEPAM 0.5 MG TAB PO (21:34)
[2018-05-22] MEDS: INSULIN GLARGINE [LANTus] (100 UNITS/ML) SYG SC (22:50)
[2018-05-23] MEDS: INSULIN ASPART [NOVOLOG] 3 ML PEN SC ×9 (02:23→21:00)
[2018-05-23] MEDS: ALBUTEROL/IPRATROPIUM (NEB) 3 ML AMP HHN ×4 (03:04→19:39)
[2018-05-23] MEDS ORDERED: FUROSEMIDE 20 MG INJ IV (08:00)
[2018-05-23] MEDS: HYDROCHLOROTHIAZIDE 25 MG TAB PO (09:02)
[2018-05-23] MEDS: AMLODIPINE 10 MG TAB PO (09:03)
[2018-05-23] MEDS: predniSONE 20 MG TAB PO (09:03)
[2018-05-23] MEDS: NICOTINE (21 MG/24 HR) PATCH TRANSDERM (13:43)
[2018-05-23] MEDS: EMPAGLIFLOZIN 10 MG TABLET PO (15:46)
[2018-05-23] MEDS: FUROSEMIDE 20 MG TAB PO (15:46)
[2018-05-23] MEDS: LORAZEPAM 1 MG TAB PO ×2 (17:24→18:03)
[2018-05-23] MEDS: LORAZEPAM 4 MG/ML VIAL IV (18:33)
[2018-05-23] MEDS: INSULIN GLARGINE [LANTus] (100 UNITS/ML) SYG SC (20:31)
[2018-05-24] MEDS: ALBUTEROL/IPRATROPIUM (NEB) 3 ML AMP HHN (01:20)
[2018-05-24 05:10] LABS: ADD MAN DIFF? NO
[2018-05-24 05:15] LABS: BASOPHILS % 0.2 % (0.0-2.0); EOSINOPHILS % 0.1 % (0.0-7.0); HEMOGLOBIN 15.3 g/dl (14.0-18.0); LYMPHOCYTES # 1.8 10^3/ul (0.8-2.9); LYMPHOCYTES % 9.3 % (15.0-51.0); MEAN CORPUSCULAR HEMOGLOBIN 30.4 pg (29.0-33.0); MEAN CORPUSCULAR VOLUME 89.3 fl (82.0-101.0); MEAN PLATELET VOLUME 9.9 fl (7.4-10.4); MONOCYTE # 0.8 10^3/ul (0.3-0.9); MONOCYTES % 4.2 % (0.0-11.0); NEUTROPHIL # 16.9 10^3/ul (1.6-7.5); NEUTROPHILS % 85.5 % (39.0-77.0); PLATELET COUNT 362 10^3/UL (140-415); RED BLOOD COUNT 5.04 10^6/ul (4.70-6.10); RED CELL DISTRIBUTION WIDTH 14.7 % (11.5-14.5)
[2018-05-24 05:15] LABS: WHITE BLOOD COUNT 19.7 10^3/ul (4.8-10.8)
[2018-05-24] MEDS: FUROSEMIDE 20 MG TAB PO (05:23)
[2018-05-24 05:43] LABS: HEMOGLOBIN A1C 5.9 % (0-5.9)
[2018-05-24 05:53] LABS: ANION GAP 12 (5-13); BLOOD UREA NITROGEN 35 mg/dl (7-20); CALCIUM 9.7 mg/dl (8.4-10.2); CARBON DIOXIDE 34 mmol/L (21-31); CHLORIDE 101 mmol/L (97-110); CREATININE 1.13 mg/dl (0.61-1.24); Estimated GFR > 60 mL/min (>60); GLUCOSE 153 mg/dl (70-220); POTASSIUM 3.6 mmol/L (3.5-5.1); SODIUM 147 mmol/L (135-144)
[2018-05-24] MEDS: NICOTINE (21 MG/24 HR) PATCH TRANSDERM (08:15)
[2018-05-24] MEDS: AMLODIPINE 10 MG TAB PO (08:16)
[2018-05-24] MEDS: predniSONE 20 MG TAB PO (08:16)
[2018-05-24] MEDS: HYDROCHLOROTHIAZIDE 25 MG TAB PO (08:16)
[2018-05-24] MEDS: EMPAGLIFLOZIN 10 MG TABLET PO (08:17)
[2018-05-24] MEDS: INSULIN ASPART [NOVOLOG] 3 ML PEN SC ×4 (08:24→12:54)
[2018-05-24] MEDS: LINAGLIPTIN 5 MG TABLET PO (10:40)
[2018-05-24] MEDS: ALPRAZOLAM 0.5 MG TAB PO (10:40)
== END 2018-05-24 14:06 | disposition home or self-care (01) | DRG 192 ==
LOC: E/R 13:09 → 6WM 16:43
PROVIDERS: Internal Medicine
PROC: 4A033R1 Measurement of Arterial Saturation, Peripheral, Percutaneous Approach (ICD-10-PCS; principal; 2018-05-22)
PROC: 3E0234Z Introduction of Serum, Toxoid and Vaccine into Muscle, Percutaneous Approach (ICD-10-PCS; 2018-05-24)
DX: J44.1 Chronic obstructive pulmonary disease with (acute) exacerbation (principal); E11.9 Type 2 diabetes mellitus without complications; E78.5 Hyperlipidemia, unspecified; I10 Essential (primary) hypertension; E66.9 Obesity, unspecified; F17.210 Nicotine dependence, cigarettes, uncomplicated; Z79.4 Long term (current) use of insulin; Z86.73 Personal history of transient ischemic attack (TIA), and cerebral infarction without residual deficits; Z23 Encounter for immunization
CPT/HCPCS: 36415; 36600; 71045; 71275; 80048; 80053; 82803; 82962; 83036; 83605; 83880; 84484; 85025; 87040; 90686; 93005; 93306; 94640; 94644; 94645; 94660; 96365; 96375; 96376; 99291-25

== ENCOUNTER 2018-06-11 10:39 | Inpatient (IN) | payer OTHER ==
[2018-06-11] MEDS: ALBUTEROL 0.083% (NEB) 2.5 MG/3 ML AMP HHN (10:51)
[2018-06-11 11:48] LABS: ADD MAN DIFF? NO
[2018-06-11 11:51] LABS: WHITE BLOOD COUNT 13.5 10^3/ul (4.8-10.8)
[2018-06-11 11:51] LABS: BASOPHIL # 0.1 10^3/ul (0.0-0.1); BASOPHILS % 0.4 % (0.0-2.0); EOSINOPHILS # 0.1 10^3/ul (0.0-0.5); EOSINOPHILS % 0.5 % (0.0-7.0); HEMATOCRIT 42.9 % (42.0-52.0); HEMOGLOBIN 14.6 g/dl (14.0-18.0); LYMPHOCYTES # 1.6 10^3/ul (0.8-2.9); LYMPHOCYTES % 11.6 % (15.0-51.0); MEAN CORPUSCULAR HEMOGLOBIN 30.2 pg (29.0-33.0); MEAN CORPUSCULAR VOLUME 88.6 fl (82.0-101.0); MEAN PLATELET VOLUME 9.8 fl (7.4-10.4); MONOCYTE # 0.7 10^3/ul (0.3-0.9); MONOCYTES % 5.3 % (0.0-11.0); NEUTROPHIL # 11.1 10^3/ul (1.6-7.5); NEUTROPHILS % 81.8 % (39.0-77.0); PLATELET COUNT 322 10^3/UL (140-415); RED BLOOD COUNT 4.84 10^6/ul (4.70-6.10); RED CELL DISTRIBUTION WIDTH 15.5 % (11.5-14.5)
[2018-06-11 12:13] LABS: ALANINE AMINOTRANSFERASE 38 IU/L (13-69); ALBUMIN 4.7 g/dl (3.3-4.9); ALBUMIN/GLOBULIN RATIO 1.14; ALKALINE PHOSPHATASE 85 IU/L (42-121); ANION GAP 13 (5-13); ASPARTATE AMINO TRANSFERASE 37 IU/L (15-46); BILIRUBIN,INDIRECT 1.4 mg/dl (0-1.1); BILIRUBIN,TOTAL 1.4 mg/dl (0.2-1.3); BLOOD UREA NITROGEN 17 mg/dl (7-20); CARBON DIOXIDE 28 mmol/L (21-31); CHLORIDE 99 mmol/L (97-110); CREATININE 1.06 mg/dl (0.61-1.24); Estimated GFR > 60 mL/min (>60); GLUCOSE 178 mg/dl (70-220); POTASSIUM 3.9 mmol/L (3.5-5.1); SODIUM 140 mmol/L (135-144); TOTAL PROTEIN 8.8 g/dl (6.1-8.1)
[2018-06-11 12:20] LABS: INR 0.98; PROTIME 13.1 Sec (11.9-14.9)
[2018-06-11 12:21] LABS: PARTIAL THROMBOPLASTIN TIME 34.4 Sec (23.0-35.0)
[2018-06-11 13:00] LABS: CALCIUM 9.3 mg/dl (8.4-10.2)
[2018-06-11 13:32] LABS: B-TYPE NATRIURETIC PEPTIDE 78 PG/ML (0-125); TROPONIN-I < 0.012 ng/ml (0.000-0.120)
[2018-06-11] MEDS: METHYLPREDNISOLONE 125 MG INJ IV (13:44)
[2018-06-11] MEDS ORDERED: ZOLPIDEM 5 MG TAB PO (16:00)
[2018-06-11] MEDS ORDERED: DOCUSATE SODIUM 100 MG CAP PO (16:00)
[2018-06-11] MEDS ORDERED: ONDANSETRON 4 MG INJ IV (16:00)
[2018-06-11] MEDS ORDERED: NITROGLYCERIN (SL) 0.4 MG TAB SL (16:00)
[2018-06-11] MEDS ORDERED: morphine 2 MG INJ IV (16:00)
[2018-06-11] MEDS ORDERED: NACL 0.9% 3 ML SYG IV (16:00)
[2018-06-11] MEDS ORDERED: DEXTROSE 50% 50 ML SYRINGE IV ×2 (17:00)
[2018-06-11] MEDS ORDERED: GLUCOSE GEL 15 GRAM TUBE BUCCAL (17:00)
[2018-06-11] MEDS ORDERED: GLUCAGON 1 MG INJ IM (17:00)
[2018-06-11] MEDS ORDERED: AZITHROMYCIN 500MG/NS (PMX) 250 ML IVPB (17:00)
[2018-06-11] MEDS ORDERED: GLUCOSE GEL 15 GRAM TUBE PO ×2 (17:00)
[2018-06-11] MEDS: CEFTRIAXONE 1 GM/50 ML (PMX) 50 ML IVPB (17:34)
[2018-06-11] MEDS: INSULIN ASPART [NOVOLOG] 3 ML PEN SC ×2 (18:00→22:33)
[2018-06-11] MEDS: ENOXAPARIN 40 MG/0.4 ML SYG SC (20:18)
[2018-06-11 20:31] LABS: CREATINE KINASE 114 IU/L (23-200)
[2018-06-11 20:44] LABS: CK INDEX 1.4; CK-MB 1.65 ng/ml (0.0-2.4); TROPONIN-I < 0.012 ng/ml (0.000-0.120)
[2018-06-11] MEDS: AZITHROMYCIN 500MG/NS (PMX) 250 ML IVPB (21:57)
[2018-06-11] MEDS: METHYLPREDNISOLONE 40 MG INJ IV (22:22)
[2018-06-11] MEDS: INSULIN GLARGINE [LANTus] (100 UNITS/ML) SYG SC (22:34)
[2018-06-11 23:09] LABS: CREATINE KINASE 113 IU/L (23-200)
[2018-06-11] MEDS: HYDROCODONE/APAP (5/325) TAB PO (23:15)
[2018-06-11 23:21] LABS: CK INDEX 1.5; CK-MB 1.73 ng/ml (0.0-2.4); TROPONIN-I < 0.012 ng/ml (0.000-0.120)
[2018-06-11] MEDS: ALBUTEROL/IPRATROPIUM (NEB) 3 ML AMP HHN (23:37)
[2018-06-12] MEDS: ACCU-CHEK XX (01:43)
[2018-06-12] MEDS: INSULIN ASPART [NOVOLOG] 3 ML PEN SC ×9 (02:09→22:25)
[2018-06-12 05:10] LABS: ADD MAN DIFF? NO
[2018-06-12 05:27] LABS: WHITE BLOOD COUNT 14.8 10^3/ul (4.8-10.8)
[2018-06-12 05:27] LABS: BASOPHILS % 0.1 % (0.0-2.0); HEMATOCRIT 37.6 % (42.0-52.0); HEMOGLOBIN 13.3 g/dl (14.0-18.0); MEAN CORPUSCULAR HEMOGLOBIN 30.6 pg (29.0-33.0); MEAN CORPUSCULAR HGB CONC 35.4 g/dl (32.0-37.0); MEAN CORPUSCULAR VOLUME 86.6 fl (82.0-101.0); MEAN PLATELET VOLUME 10.1 fl (7.4-10.4); MONOCYTE # 0.3 10^3/ul (0.3-0.9); MONOCYTES % 2.3 % (0.0-11.0); NEUTROPHIL # 13.2 10^3/ul (1.6-7.5); NEUTROPHILS % 89.4 % (39.0-77.0); PLATELET COUNT 331 10^3/UL (140-415); RED BLOOD COUNT 4.34 10^6/ul (4.70-6.10)
[2018-06-12 05:34] LABS: HEMOGLOBIN A1C 6.6 % (0-5.9)
[2018-06-12 05:44] LABS: ANION GAP 14 (5-13); BLOOD UREA NITROGEN 25 mg/dl (7-20); CALCIUM 9.1 mg/dl (8.4-10.2); CARBON DIOXIDE 25 mmol/L (21-31); CHLORIDE 97 mmol/L (97-110); CREATININE 0.91 mg/dl (0.61-1.24); Estimated GFR > 60 mL/min (>60); GLUCOSE 330 mg/dl (70-220); MAGNESIUM 2.1 mg/dl (1.7-2.5); PHOSPHORUS 3.8 mg/dl (2.5-4.9); POTASSIUM 4.1 mmol/L (3.5-5.1); SODIUM 136 mmol/L (135-144)
[2018-06-12] MEDS: NICOTINE (21 MG/24 HR) PATCH TRANSDERM (08:28)
[2018-06-12] MEDS: METHYLPREDNISOLONE 40 MG INJ IV (08:28)
[2018-06-12] MEDS: AMLODIPINE 10 MG TAB PO (08:30)
[2018-06-12] MEDS: ENOXAPARIN 40 MG/0.4 ML SYG SC (08:32)
[2018-06-12] MEDS: HYDROCHLOROTHIAZIDE 25 MG TAB PO (09:34)
[2018-06-12] MEDS ORDERED: ALPRAZOLAM 0.25 MG TAB PO (11:30)
[2018-06-12] MEDS: ALBUTEROL/IPRATROPIUM (NEB) 3 ML AMP HHN ×3 (12:58→21:17)
[2018-06-12] MEDS: BUDESONIDE (NEB) 0.5MG/2ML AMP HHN ×2 (12:58→21:17)
[2018-06-12] MEDS: PROMETHAZINE/CODEINE 5ML CUP PO ×2 (13:22→17:37)
[2018-06-12] MEDS: ALPRAZOLAM 0.25 MG TAB PO ×2 (13:22→20:35)
[2018-06-12] MEDS: CEFTRIAXONE 1 GM/50 ML (PMX) 50 ML IVPB (17:30)
[2018-06-12] MEDS: NYSTATIN 30 GM POWDER BTL TOP (20:35)
[2018-06-12] MEDS: AZITHROMYCIN 500MG/NS (PMX) 250 ML IVPB ×2 (20:40→21:32)
[2018-06-12] MEDS: INSULIN GLARGINE [LANTus] (100 UNITS/ML) SYG SC (20:40)
[2018-06-13] MEDS: PROMETHAZINE/CODEINE 5ML CUP PO ×4 (01:11→20:32)
[2018-06-13] MEDS: ALBUTEROL/IPRATROPIUM (NEB) 3 ML AMP HHN ×6 (01:43→21:02)
[2018-06-13] MEDS: ACCU-CHEK XX (02:00)
[2018-06-13 06:41] LABS: ADD MAN DIFF? NO
[2018-06-13 06:45] LABS: BASOPHILS % 0.2 % (0.0-2.0); EOSINOPHILS % 0.1 % (0.0-7.0); HEMATOCRIT 37.5 % (42.0-52.0); HEMOGLOBIN 12.8 g/dl (14.0-18.0); LYMPHOCYTES # 1.5 10^3/ul (0.8-2.9); LYMPHOCYTES % 8.2 % (15.0-51.0); MEAN CORPUSCULAR HEMOGLOBIN 30.2 pg (29.0-33.0); MEAN CORPUSCULAR HGB CONC 34.1 g/dl (32.0-37.0); MEAN CORPUSCULAR VOLUME 88.4 fl (82.0-101.0); MEAN PLATELET VOLUME 10.3 fl (7.4-10.4); MONOCYTE # 0.8 10^3/ul (0.3-0.9); MONOCYTES % 4.6 % (0.0-11.0); NEUTROPHIL # 15.7 10^3/ul (1.6-7.5); PLATELET COUNT 375 10^3/UL (140-415); RED BLOOD COUNT 4.24 10^6/ul (4.70-6.10); RED CELL DISTRIBUTION WIDTH 15.6 % (11.5-14.5)
[2018-06-13 06:45] LABS: WHITE BLOOD COUNT 18.2 10^3/ul (4.8-10.8)
[2018-06-13 07:15] LABS: ANION GAP 12 (5-13); BLOOD UREA NITROGEN 29 mg/dl (7-20); CARBON DIOXIDE 26 mmol/L (21-31); CHLORIDE 102 mmol/L (97-110); CREATININE 0.89 mg/dl (0.61-1.24); Estimated GFR > 60 mL/min (>60); GLUCOSE 209 mg/dl (70-220); POTASSIUM 4.3 mmol/L (3.5-5.1); SODIUM 140 mmol/L (135-144)
[2018-06-13] MEDS: NICOTINE (21 MG/24 HR) PATCH TRANSDERM (08:18)
[2018-06-13] MEDS: HYDROCHLOROTHIAZIDE 25 MG TAB PO (08:18)
[2018-06-13] MEDS: AMLODIPINE 10 MG TAB PO (08:18)
[2018-06-13] MEDS: INSULIN ASPART [NOVOLOG] 3 ML PEN SC ×7 (08:32→20:37)
[2018-06-13] MEDS: ENOXAPARIN 40 MG/0.4 ML SYG SC (08:32)
[2018-06-13] MEDS: BUDESONIDE (NEB) 0.5MG/2ML AMP HHN ×2 (08:59→21:02)
[2018-06-13] MEDS: NYSTATIN 30 GM POWDER BTL TOP ×2 (09:06→20:40)
[2018-06-13] MEDS: ALPRAZOLAM 0.25 MG TAB PO ×2 (09:06→20:32)
[2018-06-13] MEDS: CEFTRIAXONE 1 GM/50 ML (PMX) 50 ML IVPB (16:12)
[2018-06-13] MEDS: AZITHROMYCIN 500MG/NS (PMX) 250 ML IVPB (20:37)
[2018-06-13] MEDS: INSULIN GLARGINE [LANTus] (100 UNITS/ML) SYG SC (20:43)
[2018-06-14] MEDS: ALBUTEROL/IPRATROPIUM (NEB) 3 ML AMP HHN ×7 (01:49→20:43)
[2018-06-14] MEDS: PROMETHAZINE/CODEINE 5ML CUP PO ×3 (02:10→20:31)
[2018-06-14] MEDS: ACCU-CHEK XX (02:44)
[2018-06-14] MEDS: INSULIN ASPART [NOVOLOG] 3 ML PEN SC ×7 (08:00→20:33)
[2018-06-14] MEDS: BUDESONIDE (NEB) 0.5MG/2ML AMP HHN ×2 (08:31→20:43)
[2018-06-14] MEDS: NICOTINE (21 MG/24 HR) PATCH TRANSDERM (10:14)
[2018-06-14] MEDS: AMLODIPINE 10 MG TAB PO (10:15)
[2018-06-14] MEDS: HYDROCHLOROTHIAZIDE 25 MG TAB PO (10:16)
[2018-06-14] MEDS: NYSTATIN 30 GM POWDER BTL TOP ×2 (10:18→20:33)
[2018-06-14] MEDS: ENOXAPARIN 40 MG/0.4 ML SYG SC (10:22)
[2018-06-14] MEDS: CEFTRIAXONE 1 GM/50 ML (PMX) 50 ML IVPB (18:02)
[2018-06-14] MEDS: ALPRAZOLAM 0.25 MG TAB PO (18:47)
[2018-06-14] MEDS: AZITHROMYCIN 500MG/NS (PMX) 250 ML IVPB (20:31)
[2018-06-14] MEDS: INSULIN GLARGINE [LANTus] (100 UNITS/ML) SYG SC (20:36)
[2018-06-15] MEDS: ALBUTEROL/IPRATROPIUM (NEB) 3 ML AMP HHN ×6 (01:18→20:41)
[2018-06-15] MEDS: PROMETHAZINE/CODEINE 5ML CUP PO ×3 (01:38→19:29)
[2018-06-15] MEDS: ACCU-CHEK XX (02:00)
[2018-06-15] MEDS: BUDESONIDE (NEB) 0.5MG/2ML AMP HHN ×2 (07:46→20:41)
[2018-06-15] MEDS: NICOTINE (21 MG/24 HR) PATCH TRANSDERM (08:20)
[2018-06-15] MEDS: NYSTATIN 30 GM POWDER BTL TOP ×2 (08:22→20:27)
[2018-06-15] MEDS: HYDROCHLOROTHIAZIDE 25 MG TAB PO (08:22)
[2018-06-15] MEDS: AMLODIPINE 10 MG TAB PO (08:22)
[2018-06-15] MEDS: INSULIN ASPART [NOVOLOG] 3 ML PEN SC ×7 (08:24→20:29)
[2018-06-15] MEDS: ENOXAPARIN 40 MG/0.4 ML SYG SC (08:25)
[2018-06-15] MEDS: ALPRAZOLAM 0.25 MG TAB PO ×2 (08:33→20:27)
[2018-06-15] MEDS: CEFTRIAXONE 1 GM/50 ML (PMX) 50 ML IVPB (16:02)
[2018-06-15] MEDS: INSULIN GLARGINE [LANTus] (100 UNITS/ML) SYG SC (20:31)
[2018-06-15] MEDS: HYDROCODONE/APAP (5/325) TAB PO (21:13)
[2018-06-15] MEDS: AZITHROMYCIN 500MG/NS (PMX) 250 ML IVPB (21:14)
[2018-06-16] MEDS: ALBUTEROL/IPRATROPIUM (NEB) 3 ML AMP HHN ×6 (00:10→23:56)
[2018-06-16] MEDS: ACCU-CHEK XX (02:27)
[2018-06-16] MEDS: BUDESONIDE (NEB) 0.5MG/2ML AMP HHN ×2 (08:00→20:24)
[2018-06-16] MEDS: HYDROCHLOROTHIAZIDE 25 MG TAB PO (08:22)
[2018-06-16] MEDS: AMLODIPINE 10 MG TAB PO (08:22)
[2018-06-16] MEDS: NYSTATIN 30 GM POWDER BTL TOP ×2 (08:22→20:59)
[2018-06-16] MEDS: NICOTINE (21 MG/24 HR) PATCH TRANSDERM (08:22)
[2018-06-16] MEDS: ENOXAPARIN 40 MG/0.4 ML SYG SC (08:28)
[2018-06-16] MEDS: INSULIN ASPART [NOVOLOG] 3 ML PEN SC ×7 (08:29→20:54)
[2018-06-16] MEDS: PROMETHAZINE/CODEINE 5ML CUP PO ×3 (09:58→21:22)
[2018-06-16] MEDS: ALPRAZOLAM 0.25 MG TAB PO ×2 (14:31→20:45)
[2018-06-16] MEDS: CEFTRIAXONE 1 GM/50 ML (PMX) 50 ML IVPB (17:26)
[2018-06-16] MEDS ORDERED: ALBUTEROL/IPRATROPIUM (NEB) 3 ML AMP HHN (19:30)
[2018-06-16] MEDS: LACTOBACILLUS RHAMNOSUS CAP PO (20:45)
[2018-06-16] MEDS: ACETAMINOPHEN 325 MG TAB PO (20:52)
[2018-06-16] MEDS: predniSONE 20 MG TAB PO (20:52)
[2018-06-16] MEDS: INSULIN GLARGINE [LANTus] (100 UNITS/ML) SYG SC (20:56)
[2018-06-17] MEDS: ACCU-CHEK XX (02:00)
[2018-06-17] MEDS: ALPRAZOLAM 0.25 MG TAB PO ×2 (05:43→16:53)
[2018-06-17] MEDS: PROMETHAZINE/CODEINE 5ML CUP PO ×3 (05:43→19:04)
[2018-06-17 05:44] LABS: ADD MAN DIFF? NO
[2018-06-17 05:46] LABS: BASOPHIL # 0.1 10^3/ul (0.0-0.1); BASOPHILS % 0.4 % (0.0-2.0); EOSINOPHILS # 0.1 10^3/ul (0.0-0.5); EOSINOPHILS % 0.7 % (0.0-7.0); HEMATOCRIT 39.7 % (42.0-52.0); LYMPHOCYTES % 15.8 % (15.0-51.0); MEAN CORPUSCULAR HEMOGLOBIN 30.1 pg (29.0-33.0); MEAN CORPUSCULAR HGB CONC 35.3 g/dl (32.0-37.0); MEAN CORPUSCULAR VOLUME 85.4 fl (82.0-101.0); MEAN PLATELET VOLUME 9.8 fl (7.4-10.4); MONOCYTE # 0.4 10^3/ul (0.3-0.9); MONOCYTES % 3.1 % (0.0-11.0); NEUTROPHIL # 10.1 10^3/ul (1.6-7.5); NEUTROPHILS % 78.7 % (39.0-77.0); PLATELET COUNT 382 10^3/UL (140-415); RED BLOOD COUNT 4.65 10^6/ul (4.70-6.10); RED CELL DISTRIBUTION WIDTH 14.7 % (11.5-14.5)
[2018-06-17 05:46] LABS: WHITE BLOOD COUNT 12.9 10^3/ul (4.8-10.8)
[2018-06-17 06:05] LABS: PROTIME 13.3 Sec (11.9-14.9)
[2018-06-17 06:07] LABS: ANION GAP 8 (5-13); BLOOD UREA NITROGEN 24 mg/dl (7-20); CALCIUM 9.2 mg/dl (8.4-10.2); CARBON DIOXIDE 31 mmol/L (21-31); CHLORIDE 97 mmol/L (97-110); Estimated GFR > 60 mL/min (>60); GLUCOSE 217 mg/dl (70-220); MAGNESIUM 2.1 mg/dl (1.7-2.5); POTASSIUM 4.1 mmol/L (3.5-5.1); SODIUM 136 mmol/L (135-144)
[2018-06-17 06:18] LABS: TROPONIN-I < 0.012 ng/ml (0.000-0.120)
[2018-06-17 07:18] LABS: THYROID STIMULATING HORMONE 0.193 MIU/L (0.465-4.680)
[2018-06-17] MEDS: ALBUTEROL/IPRATROPIUM (NEB) 3 ML AMP HHN ×2 (07:32→16:31)
[2018-06-17] MEDS: BUDESONIDE (NEB) 0.5MG/2ML AMP HHN ×2 (07:32→21:24)
[2018-06-17] MEDS: INSULIN ASPART [NOVOLOG] 3 ML PEN SC ×7 (08:25→21:19)
[2018-06-17] MEDS: LACTOBACILLUS RHAMNOSUS CAP PO ×2 (09:23→21:13)
[2018-06-17] MEDS: AMLODIPINE 10 MG TAB PO (09:23)
[2018-06-17] MEDS: HYDROCHLOROTHIAZIDE 25 MG TAB PO (09:23)
[2018-06-17] MEDS: ENOXAPARIN 40 MG/0.4 ML SYG SC (09:24)
[2018-06-17] MEDS: NYSTATIN 30 GM POWDER BTL TOP ×2 (09:30→21:19)
[2018-06-17] MEDS: predniSONE 20 MG TAB PO (10:57)
[2018-06-17] MEDS: NICOTINE (21 MG/24 HR) PATCH TRANSDERM (10:58)
[2018-06-17] MEDS: MAGNESIUM SULFATE 2 GM/50 ML 50 ML IVPB (11:57)
[2018-06-17] MEDS: CEFTRIAXONE 2 GM/50 ML (PMX) 50 ML IVPB (18:01)
[2018-06-17] MEDS: INSULIN GLARGINE [LANTus] (100 UNITS/ML) SYG SC (21:18)
[2018-06-18] MEDS: ALBUTEROL/IPRATROPIUM (NEB) 3 ML AMP HHN ×2 (00:26→09:38)
[2018-06-18] MEDS: PROMETHAZINE/CODEINE 5ML CUP PO ×3 (00:57→13:55)
[2018-06-18] MEDS: ALPRAZOLAM 0.25 MG TAB PO ×2 (01:18→09:36)
[2018-06-18] MEDS: ACCU-CHEK XX (02:00)
[2018-06-18] MEDS: INSULIN ASPART [NOVOLOG] 3 ML PEN SC ×4 (08:00→13:01)
[2018-06-18] MEDS: ENOXAPARIN 40 MG/0.4 ML SYG SC (08:44)
[2018-06-18] MEDS: predniSONE 20 MG TAB PO (08:46)
[2018-06-18] MEDS: NICOTINE (21 MG/24 HR) PATCH TRANSDERM (08:46)
[2018-06-18] MEDS: LACTOBACILLUS RHAMNOSUS CAP PO (08:46)
[2018-06-18] MEDS: AMLODIPINE 10 MG TAB PO (08:46)
[2018-06-18] MEDS: NYSTATIN 30 GM POWDER BTL TOP (09:36)
[2018-06-18] MEDS: BUDESONIDE (NEB) 0.5MG/2ML AMP HHN (09:39)
[2018-06-18] MEDS: HYDROCHLOROTHIAZIDE 25 MG TAB PO (09:43)
== END 2018-06-18 14:30 | disposition home or self-care (01) | DRG 192 ==
LOC: E/R 10:39 → 2NE 13:39
DX: J44.1 Chronic obstructive pulmonary disease with (acute) exacerbation (principal); E11.65 Type 2 diabetes mellitus with hyperglycemia; Z68.29 Body mass index [BMI] 29.0-29.9, adult; E66.01 Morbid (severe) obesity due to excess calories; F41.9 Anxiety disorder, unspecified; I10 Essential (primary) hypertension; F17.200 Nicotine dependence, unspecified, uncomplicated; E88.81 Metabolic syndrome and other insulin resistance; G47.33 Obstructive sleep apnea (adult) (pediatric); E05.90 Thyrotoxicosis, unspecified without thyrotoxic crisis or storm
CPT/HCPCS: 36415; 71045; 80048; 80053; 82550; 82553; 82962; 83036; 83735; 83880; 84100; 84443; 84484; 85025; 85610; 85730; 87400; 90686; 93005; 93970; 94640; 94664; 99285-25; G0378